=== PATIENT | female | born 1965 | race Caucasian/White ===

== ENCOUNTER 2021-11-17 05:56 | Day surgery (SDC) | payer OTHER ==
[2021-11-15 15:37] VITALS: BMI 30.9
[2021-11-17] MEDS ORDERED: DEXAMETHASONE SOD PHOSPHATE 4 MG/1 ML VIAL ONE ×2 (07:18→08:27)
[2021-11-17] MEDS ORDERED: LIDOCAINE HCL 2% 100 MG/5 ML DISP.SYRIN ONE (07:18)
[2021-11-17] MEDS ORDERED: KETOROLAC TROMETHAMINE 30 MG/1 ML VIAL ONE ×2 (07:18→09:10)
[2021-11-17] MEDS ORDERED: ONDANSETRON 4 MG/2 ML VIAL ONE ×3 (07:18→09:53)
[2021-11-17] MEDS ORDERED: MIDAZOLAM HCL 2 MG/2 ML SINGLE DOSE VIAL ONE (07:19)
[2021-11-17] MEDS ORDERED: PROPOFOL 20 ML ONE (07:19)
[2021-11-17] MEDS ORDERED: ROPIVACAINE HCL/PF 100 MG/20 ML VIAL ONE (07:27)
[2021-11-17] MEDS ORDERED: ceFAZolin SODIUM 1 GM VIAL ONE (08:25)
[2021-11-17] MEDS ORDERED: ONDANSETRON 4 MG/2 ML VIAL IVPUSH PRN (09:34)
[2021-11-17] MEDS ORDERED: oxyCODONE HCL 5 MG TABLET PO PRN ×2 (09:34)
[2021-11-17] MEDS ORDERED: PROMETHAZINE HCL 25 MG/1 ML VIAL IVPUSH PRN (09:34)
[2021-11-17] MEDS ORDERED: FENTANYL CITRATE/PF 50 MCG/ML VIAL ONE ×2 (09:41→09:52)
[2021-11-17] MEDS ORDERED: LACTATED RINGERS SOLUTION 1,000 ML IV SCH (09:45)
[2021-11-17 10:30] VITALS: RESP 18; TEMP 97.3
[2021-11-17 11:26] VITALS: BP 131/78; PULSE 74
== END 2021-11-17 12:05 | disposition home or self-care (01) ==
LOC: FASU 05:56
PROVIDERS: ATTEND Orthopaedic Surgery
PROC: 0LQ14ZZ Repair Right Shoulder Tendon, Percutaneous Endoscopic Approach (ICD-10-PCS; principal; 2021-11-17 08:40)
PROC: 0RNJ4ZZ Release Right Shoulder Joint, Percutaneous Endoscopic Approach (ICD-10-PCS; 2021-11-17 08:40)
DX: M75.41 Impingement syndrome of right shoulder (principal); M75.101 Unspecified rotator cuff tear or rupture of right shoulder, not specified as traumatic
CPT/HCPCS: 82962; 94760

== ENCOUNTER 2022-01-09 04:37 | Day surgery (SDC) | payer OTHER ==
[2022-01-06 10:09] VITALS: BMI 30.9
[2022-01-09] MEDS ORDERED: PROPOFOL 40 ML ONE (07:39)
[2022-01-09] MEDS ORDERED: SUCCINYLCHOLINE CHLORIDE 200 MG/10 ML SYRINGE ONE (07:39)
[2022-01-09] MEDS ORDERED: MIDAZOLAM HCL 2 MG/2 ML SINGLE DOSE VIAL ONE (07:40)
[2022-01-09] MEDS ORDERED: BUPIVACAINE HCL/PF 0.5% (5MG/ML) 10 ML VIAL ONE (07:42)
[2022-01-09] MEDS ORDERED: ROPIVACAINE HCL 0.5% 30ML VIAL ONE (08:53)
[2022-01-09] MEDS ORDERED: DEXAMETHASONE SOD PHOSPHATE 10 MG/1 ML VIAL ONE (08:53)
[2022-01-09] MEDS ORDERED: LIDOCAINE HCL/PF 2% SDV 5ML VIAL ONE (09:09)
[2022-01-09] MEDS ORDERED: ceFAZolin SODIUM 1 GM VIAL ONE (09:09)
[2022-01-09] MEDS ORDERED: ceFAZolin SODIUM 1 GM VIAL IVPB ONE ×2 (09:17→09:19)
[2022-01-09] MEDS ORDERED: SODIUM CHLORIDE 0.9% P/F 10 ML VIAL IJ ONE (09:19)
[2022-01-09] MEDS ORDERED: DEXAMETHASONE SOD PHOSPHATE 4 MG/1 ML VIAL ONE (09:28)
[2022-01-09] MEDS ORDERED: ONDANSETRON 4 MG/2 ML VIAL ONE (09:28)
[2022-01-09] MEDS ORDERED: BUPIVACAINE HCL/PF 0.5% (5 MG/ML) 30 ML VIAL IJ ONE (09:36)
[2022-01-09] MEDS ORDERED: LIDOCAINE HCL 1%, 10 MG/ML (20ML VIAL) INF ONE (09:37)
[2022-01-09] MEDS ORDERED: ACETAMINOPHEN 1000 MG/100 ML BAG IVPB ONE ×2 (10:35→11:43)
[2022-01-09] MEDS ORDERED: ACETAMINOPHEN INJECTION 100 ML IVPB ONE (10:47)
[2022-01-09] MEDS ORDERED: ONDANSETRON 4 MG/2 ML VIAL IVPUSH PRN (11:32)
[2022-01-09] MEDS ORDERED: oxyCODONE HCL 5 MG TABLET PO PRN (11:32)
[2022-01-09] MEDS ORDERED: LACTATED RINGERS SOLUTION 1,000 ML IV SCH (11:45)
[2022-01-09] MEDS ORDERED: oxyCODONE HCL 5 MG TABLET ONE (12:01)
[2022-01-09 14:35] VITALS: RESP 20; TEMP 97.4
[2022-01-09 14:41] VITALS: BP 127/71; PULSE 70
== END 2022-01-09 12:45 | disposition home or self-care (01) ==
LOC: JASU-SURG 04:37
PROVIDERS: ATTEND Orthopaedic Surgery
PROC: 01N50ZZ Release Median Nerve, Open Approach (ICD-10-PCS; principal; 2022-01-09 09:00)
PROC: 0PSH04Z Reposition Right Radius with Internal Fixation Device, Open Approach (ICD-10-PCS; 2022-01-09 09:00)
DX: S52.571A Other intraarticular fracture of lower end of right radius, initial encounter for closed fracture (principal); G56.01 Carpal tunnel syndrome, right upper limb; J44.9 Chronic obstructive pulmonary disease, unspecified; E11.9 Type 2 diabetes mellitus without complications; Z79.84 Long term (current) use of oral hypoglycemic drugs; X58.XXXA Exposure to other specified factors, initial encounter; Y93.9 Activity, unspecified; Y92.9 Unspecified place or not applicable; Y99.9 Unspecified external cause status
CPT/HCPCS: 25609; 64721; C1713; 73110-TC-RT-FY; 82962; 94760; J1100

== ENCOUNTER 2022-04-21 03:59 | Day surgery (SDC) | payer OTHER ==
[2022-04-19 09:50] VITALS: BMI 31.7
[~2022-04-21 03:59] MED LIST: LIDOCAINE 1% P/F 10 MG/ML VIAL INF ONE
[2022-04-21] MEDS ORDERED: LIDOCAINE HCL/PF 1% SDV 5ML VIAL ONE (07:16)
[2022-04-21] MEDS ORDERED: LIDOCAINE 1% P/F 10 MG/ML VIAL INF ONE (09:55)
[2022-04-21 10:58] VITALS: TEMP 98.7
[2022-04-21 12:21] VITALS: BP 119/83; PULSE 97; RESP 20
== END 2022-04-21 12:23 | disposition home or self-care (01) ==
LOC: JASU-SURG 03:59
PROVIDERS: ATTEND Pain Medicine Pain Medicine
PROC: 01HY3MZ Insertion of Neurostimulator Lead into Peripheral Nerve, Percutaneous Approach (ICD-10-PCS; principal; 2022-04-21 10:00)
DX: G89.4 Chronic pain syndrome (principal); M79.641 Pain in right hand
CPT/HCPCS: 64555; C1778

== ENCOUNTER 2022-05-16 04:15 | Day surgery (SDC) | payer OTHER ==
[2022-05-10 15:42] VITALS: BMI 31.7
[~2022-05-16 04:15] MED LIST changes: -LIDOCAINE 1% P/F 10 MG/ML VIAL INF ONE; +LIDOCAINE 1% P/F 10 MG/ML VIAL PNB ONE
[2022-05-16 06:55] VITALS: RESP 20
[2022-05-16] MEDS ORDERED: LIDOCAINE HCL/PF 1% SDV 5ML VIAL ONE (07:19)
[2022-05-16] MEDS ORDERED: SODIUM CHLORIDE 0.9% P/F 10 ML VIAL IJ ONE (07:53)
[2022-05-16] MEDS ORDERED: LIDOCAINE 1% P/F 10 MG/ML VIAL PNB ONE ×2 (08:40)
[2022-05-16 11:42] VITALS: BP 130/74; PULSE 78; TEMP 97.8
== END 2022-05-16 10:30 | disposition home or self-care (01) ==
LOC: JASU-SURG 04:15
PROVIDERS: ATTEND Pain Medicine Pain Medicine
PROC: 01HY3MZ Insertion of Neurostimulator Lead into Peripheral Nerve, Percutaneous Approach (ICD-10-PCS; principal; 2022-05-16 08:00)
DX: G89.4 Chronic pain syndrome (principal); M79.641 Pain in right hand
CPT/HCPCS: 64555; C1778

== ENCOUNTER 2022-09-20 07:47 | Day surgery (SDC) | payer OTHER ==
[2022-09-14 14:17] VITALS: BMI 30.5
[2022-09-20 08:13] VITALS: BP 130/73; PULSE 75; RESP 16; TEMP 97.7
== END 2022-09-20 08:53 | disposition home or self-care (01) ==
LOC: FASU 07:47
PROVIDERS: ATTEND Orthopaedic Surgery Hand Surgery
PROC: 01N40ZZ Release Ulnar Nerve, Open Approach (ICD-10-PCS; principal; 2022-09-20)
DX: Z53.09 Procedure and treatment not carried out because of other contraindication (principal)
CPT/HCPCS: 82962

== ENCOUNTER 2023-01-10 12:20 | Day surgery (SDC) | payer OTHER ==
[2023-01-10] MEDS ORDERED: PROPOFOL 20 ML ONE (13:38)
[2023-01-10] MEDS ORDERED: MIDAZOLAM HCL 2 MG/2 ML SINGLE DOSE VIAL ONE (13:38)
[2023-01-10] MEDS ORDERED: FAMOTIDINE 20 MG/50 ML IVPB 20 MG/50 ML MG IVPB ONE (13:43)
[2023-01-10] MEDS ORDERED: ACETAMINOPHEN INJECTION 100 ML IVPB ONE (13:43)
[2023-01-10] MEDS ORDERED: oxyCODONE HCL 5 MG TABLET PO PRN (13:54)
[2023-01-10] MEDS ORDERED: ACETAMINOPHEN 325 MG TABLET (FP) PO PRN (13:54)
[2023-01-10] MEDS ORDERED: ONDANSETRON 4 MG/2 ML VIAL IVPUSH PRN (13:54)
[2023-01-10] MEDS ORDERED: LACTATED RINGERS SOLUTION 1,000 ML IV SCH (14:00)
[2023-01-10] MEDS ORDERED: ceFAZolin SODIUM 1 GM VIAL ONE (14:09)
[2023-01-10] MEDS ORDERED: BUPIVACAINE HCL/PF 0.25% (2.5MG/ML) 10 ML VIAL IJ ONE (14:43)
[2023-01-10] MEDS ORDERED: FENTANYL CITRATE/PF 50 MCG/ML VIAL ONE (15:17)
[2023-01-10] MEDS ORDERED: oxyCODONE HCL 5 MG TABLET ONE (15:52)
[2023-01-10 16:14] VITALS: TEMP 97.5
[2023-01-10 16:16] VITALS: BP 130/64
[2023-01-10 16:32] VITALS: PULSE 84; RESP 16
== END 2023-01-10 16:33 | disposition home or self-care (01) ==
LOC: FASU 12:20
PROVIDERS: ATTEND Orthopaedic Surgery Hand Surgery
PROC: 01N40ZZ Release Ulnar Nerve, Open Approach (ICD-10-PCS; principal; 2023-01-10 14:20)
DX: G56.21 Lesion of ulnar nerve, right upper limb (principal)
CPT/HCPCS: 94760

== ENCOUNTER 2023-03-09 04:01 | Day surgery (SDC) | payer OTHER ==
[~2023-03-09 04:01] MED LIST changes: +BUPIVACAINE HCL/PF 0.25% (2.5MG/ML) 10 ML VIAL IJ ONE; -LIDOCAINE 1% P/F 10 MG/ML VIAL PNB ONE; +LIDOCAINE HCL 1% PRESERVATIVE FREE - 30ML VIAL IJ ONE; +LIDOCAINE HCL 2% (50ML VIAL) INF ONE
[2023-03-09] MEDS ORDERED: LIDOCAINE HCL 1% PRESERVATIVE FREE - 30ML VIAL IJ ONE (09:20)
[2023-03-09] MEDS ORDERED: BUPIVACAINE HCL/PF 0.25% (2.5MG/ML) 10 ML VIAL IJ ONE ×2 (09:20)
[2023-03-09 09:47] VITALS: BP 133/64; PULSE 68; RESP 17; TEMP 97.7
[2023-03-09] MEDS ORDERED: ACETAMINOPHEN 500 MG TABLET (FP) PO PRN (13:54)
== END 2023-03-09 11:00 | disposition home or self-care (01) ==
LOC: JASU-SURG 04:01
PROVIDERS: ATTEND Pain Medicine Pain Medicine
PROC: 01HY0MZ Insertion of Neurostimulator Lead into Peripheral Nerve, Open Approach (ICD-10-PCS; principal; 2023-03-09 08:00)
DX: G89.4 Chronic pain syndrome (principal)
CPT/HCPCS: 64575; C1778

== ENCOUNTER 2023-04-13 04:16 | Day surgery (SDC) | payer OTHER ==
[2023-04-10 14:01] VITALS: BMI 30.9
[~2023-04-13 04:16] MED LIST changes: -BUPIVACAINE HCL/PF 0.25% (2.5MG/ML) 10 ML VIAL IJ ONE; +DEXAMETHASONE SOD PHOSPHATE 10 MG/1 ML VIAL IVPUSH ONE; +IOHEXOL 180 MG/1 ML ML IJ ONE; +LIDOCAINE 1% P/F 10 MG/ML VIAL INF ONE; -LIDOCAINE HCL 1% PRESERVATIVE FREE - 30ML VIAL IJ ONE; -LIDOCAINE HCL 2% (50ML VIAL) INF ONE
[2023-04-13 10:05] VITALS: BP 136/79; PULSE 85; RESP 20; TEMP 98.2
[2023-04-13] MEDS ORDERED: DEXAMETHASONE SOD PHOSPHATE 10 MG/1 ML VIAL IVPUSH ONE (11:07)
[2023-04-13] MEDS ORDERED: LIDOCAINE 1% P/F 10 MG/ML VIAL INF ONE (11:07)
[2023-04-13] MEDS ORDERED: IOHEXOL 180 MG/1 ML ML IJ ONE ×2 (11:07)
[2023-04-13] MEDS ORDERED: ACETAMINOPHEN 500 MG TABLET (FP) PO PRN (13:20)
== END 2023-04-13 11:39 | disposition home or self-care (01) ==
LOC: JASU-SURG 04:16
PROVIDERS: ATTEND Pain Medicine Pain Medicine
PROC: 3E0R3BZ Introduction of Anesthetic Agent into Spinal Canal, Percutaneous Approach (ICD-10-PCS; 2023-04-13)
PROC: 3E0R33Z Introduction of Anti-inflammatory into Spinal Canal, Percutaneous Approach (ICD-10-PCS; principal; 2023-04-13 11:45)
DX: M54.16 Radiculopathy, lumbar region (principal)
CPT/HCPCS: 76000-TC-FY; J1100

== ENCOUNTER 2023-05-11 08:54 | Emergency (ER) | payer OTHER ==
[2023-05-11 09:13] VITALS: BP 148/77; PULSE 88; RESP 18; TEMP 98; BMI 30.9
[2023-05-11] MEDS ORDERED: ACETAMINOPHEN INJECTION 100 ML IVPB ONE (09:48)
[2023-05-11] MEDS: LACTATED RINGERS SOLUTION 1000 ML INFUS.BAG IV ONE (10:24)
[2023-05-11] MEDS: ACETAMINOPHEN 1000 MG/100 ML BAG IVPB ONE (10:25)
[2023-05-11 10:35] LABS: BASO % 0.6 % (0-2.0); EOS % 1.5 % (0-4.5); HEMATOCRIT 37.3 % (32.4-45.2); HEMOGLOBIN 12.8 GM/dL (10.7-15.3); LYMPH % 21.3 % (8-40); MCH 32.6 pg (25.7-33.7); MCHC 34.3 g/dl (32.0-36.0); MEAN CELL VOLUME 94.9 fl (80-96); MEAN PLT VOLUME 9.9 fl (7.5-11.1); NEUT % 68.6 % (42.8-82.8); PH,URINE 5.5 (5.0-8.0); PLATELET COUNT 233 10^3/uL (134-434); RBC 3.93 M/mm3 (3.60-5.2); RDW 13.4 % (11.6-15.6); URINE APPEARANCE CLEAR; URINE BILIRUBIN NEGATIVE (NEGATIVE); URINE COLOR YELLOW; URINE GLUCOSE (UA) NEGATIVE (NEGATIVE); URINE KETONE TRACE (NEGATIVE); URINE LEUK ESTERASE NEGATIVE (NEGATIVE); URINE NITRITE NEGATIVE (NEGATIVE); URINE PROTEIN NEGATIVE (NEGATIVE); URINE UROBILINOGEN 0.2 mg/dL (0.2-1.0); WHITE BLOOD COUNT 9.1 K/mm3 (4.0-10.0)
[2023-05-11 11:01] LABS: POTASSIUM 4.4 mmol/L (3.5-5.1)
[2023-05-11 11:03] LABS: CALCIUM 8.3 mg/dL (8.5-10.1)
[2023-05-11 11:04] LABS: ALBUMIN 3.7 g/dl (3.4-5.0); BLOOD UREA NITROGEN 16.4 mg/dL (7-18); MAGNESIUM 2.2 mg/dL (1.8-2.4)
[2023-05-11 11:07] LABS: CREATININE 0.6 mg/dL (0.55-1.3)
[2023-05-11 11:08] LABS: BILIRUBIN,TOTAL 0.5 mg/dL (0.2-1); TOT PROT 6.2 g/dl (6.4-8.2)
[2023-05-11] MEDS ORDERED: IOHEXOL (OMNIPAQUE PO) 12 MG/ML - 500 ML BOTTLE PO ONE (12:09)
[2023-05-11] MEDS ORDERED: KETOROLAC TROMETHAMINE 15 MG/ML VIAL ONE (14:53)
[2023-05-11] MEDS: KETOROLAC TROMETHAMINE 15 MG/ML VIAL IM ONE (15:19)
== END 2023-05-11 16:27 | disposition home or self-care (01) ==
LOC: JER 08:54
PROC: 3E033NZ Introduction of Analgesics, Hypnotics, Sedatives into Peripheral Vein, Percutaneous Approach (ICD-10-PCS; principal; 2023-05-11)
PROC: 3E0333Z Introduction of Anti-inflammatory into Peripheral Vein, Percutaneous Approach (ICD-10-PCS; 2023-05-11)
DX: R10.33 Periumbilical pain (principal); R00.2 Palpitations; R19.7 Diarrhea, unspecified; Z20.822 Contact with and (suspected) exposure to COVID-19
CPT/HCPCS: 0241U-QW; 36415; 74177-TC; 80053; 81003; 83605; 83690; 83735; 84443; 85025; 87086; 93005; 93010; 96374; 96375; 99285-25; J0131; Q9967

== ENCOUNTER 2024-08-29 07:30 | Day surgery (SDC) | payer OTHER ==
[2024-08-26 12:16] VITALS: BMI 28.6
[2024-08-29 09:49] VITALS: RESP 18
[2024-08-29 10:46] VITALS: BP 127/78; PULSE 68; TEMP 98
[2024-08-29] MEDS ORDERED: ACETAMINOPHEN 500 MG TABLET (FP) PO PRN (15:34)
== END 2024-08-29 10:20 | disposition home or self-care (01) ==
LOC: JASU-SURG 07:30
PROVIDERS: ATTEND Pain Medicine Pain Medicine
PROC: 01HY3MZ Insertion of Neurostimulator Lead into Peripheral Nerve, Percutaneous Approach (ICD-10-PCS; principal; 2024-08-29 09:16)
DX: G89.4 Chronic pain syndrome (principal); M79.651 Pain in right thigh
CPT/HCPCS: 64555; C1778